=== PATIENT | male | born 1965 | race Caucasian/White ===

== ENCOUNTER 2019-03-26 23:45 | Inpatient (IN) ==
[2019-03-26] MEDS ORDERED: Ipratropium/Albuterol Neb 3 ML IH ONE (23:58)
[2019-03-27] MEDS ORDERED: Naloxone 0.4 MG/ML INJ IVP ONE (00:01)
[2019-03-27] MEDS ORDERED: Naloxone 0.4 MG/ML INJ ONE (00:25)
[2019-03-27] MEDS ORDERED: 0.9 % Sodium Chloride 1,000 ML IVC ONE (00:39)
[2019-03-27 00:42] LABS: Red Cell Distribution Width 12.8 % (11.5-14.5)
[2019-03-27 00:44] LABS: Hematocrit 45.8 % (37.5-50.1); Hemoglobin 15.2 g/dL (12.9-16.9); Mean Corpuscular HGB Conc 33.2 g/dL (31.6-35.5); Mean Corpuscular Hemoglobin 28.6 pg (28.0-33.3); Mean Corpuscular Volume 86.1 fL (83.0-100.0); Mean Platelet Volume 10.2 fL (9.4-12.4); Platelet Count 351 K/mcL (140-400); Red Blood Count 5.32 M/mcL (4.19-5.50); White Blood Count 28.9 K/mcL (4.3-11.1)
[2019-03-27 00:59] LABS: Acetaminophen < 10 mcg/mL (10-20); Alanine Aminotransferase 38 Units/L (7-52); Albumin 4.1 g/dL (3.5-5.7); Albumin/Globulin Ratio 1.1 (1.1-2.2); Alkaline Phosphatase 73 Units/L (34-104); Aspartate Amino Transferase 33 Units/L (13-39); BUN/Creatinine Ratio 7 (6-26); Bilirubin,Indirect 0.3 mg/dL (0.0-1.0); Bilirubin,Total 0.3 mg/dL (0.3-1.0); Blood Urea Nitrogen 9 mg/dL (6-20); Calcium 9.2 mg/dL (8.6-10.3); Carbon Dioxide 28 mEq/L (23-29); Chloride 101 mEq/L (98-107); Creatine Kinase 87 Units/L (30-223); Ethanol < 10 mg/dL (Less than 10); Globulin 3.6 g/dL (2.4-3.5); Glucose 189 mg/dL (70-105); Osmolality,Calculated 286 (280-300); Potassium 3.9 mEq/L (3.5-5.1); Salicylate < 2.5 mg/dL (15.0-30.0); Sodium 136 mEq/L (136-145); Total Protein 7.7 g/dL (6.4-8.9); eGFR For African Americans > 60 (> 60); eGFR For Non-African Americans 60 (> 60)
[2019-03-27 01:08] LABS: Troponin I < 0.03 ng/mL (< 0.04)
[2019-03-27 01:22] LABS: Basophils # 0.3 K/mcL (0.0-0.2); Eosinophils # 1.2 K/mcL (0.0-0.6); Lymphocytes # 4.3 K/mcL (0.6-4.6); Monocytes # 0.9 K/mcL (0.0-1.3); Neutrophils # 22.3 K/mcL (1.6-8.9)
[2019-03-27 01:23] LABS: Platelet Estimate Normal (Normal); Reactive Lymphocytes Present (Not Present)
[2019-03-27] MEDS ORDERED: Isovue-370 500 ML BOTTLE IVP ONE (01:39)
[2019-03-27] MEDS ORDERED: *HR* Heparin 5,000 UNIT/ML VIAL IVP ONE (02:21)
[2019-03-27] MEDS ORDERED: *HR* Heparin 5,000 UNIT/ML VIAL IVP PRN ×2 (02:21)
[2019-03-27] MEDS ORDERED: Piperacillin/Tazobactam 3.375 GM in Water for inj. (sterile) 20 ML IVP ONE (02:29)
[2019-03-27] MEDS ORDERED: Heparin 25,000 UNIT/250 ML D5W 25,000 UNIT/250 ML IV.SOLN IVC SCH ×2 (02:30→13:31)
[2019-03-27 02:52] LABS: Bilirubin,Urine Negative (Negative); Blood,Urine Negative (Negative); Clarity,Urine Clear (Clear); Color,Urine Yellow (Yellow); Glucose,Urine (UA) 250 mg/dL (Normal); Ketones,Urine Negative (Negative); Leukocyte Esterase,Urine Negative (Negative); Nitrite,Urine Negative (Negative); Protein,Urine 100 mg/dL (Neg-Trace); Specific Gravity,Urine 1.024 (1.010-1.025); Urobilinogen,Urine Normal (Normal)
[2019-03-27 02:54] LABS: Bacteria,Urine None Seen per hpf (None-Few); Hyaline Casts,Urine None Seen per lpf (None-Few); RBC,Urine 0-3 per hpf (0-3); Squamous Epithelial Cell,Urine Many per lpf (None-Few); WBC,Urine 0-3 per hpf (0-3)
[2019-03-27 03:06] LABS: Amphetamine Screen,Urine Negative ng/mL (Cutoff=1000); Barbiturate Screen,Urine Negative ng/mL (Cutoff=200); Benzodiazepines Screen,Urine Negative ng/mL (Cutoff=200); Cannabinoid Screen,Urine Negative ng/mL (Cutoff = 50); Cocaine Screen,Urine Negative ng/mL (Cutoff= 300); Opiate Screen,Urine Positive ng/mL (Cutoff=300); Phencyclidine Screen,Urine Negative ng/mL (Cutoff=25)
[2019-03-27 03:52] LABS: Hematocrit 44.5 % (37.5-50.1); Hemoglobin 14.9 g/dL (12.9-16.9); Mean Corpuscular HGB Conc 33.5 g/dL (31.6-35.5); Mean Corpuscular Hemoglobin 28.5 pg (28.0-33.3); Mean Corpuscular Volume 85.2 fL (83.0-100.0); Mean Platelet Volume 10.4 fL (9.4-12.4); Platelet Count 299 K/mcL (140-400); Red Blood Count 5.22 M/mcL (4.19-5.50); Red Cell Distribution Width 12.8 % (11.5-14.5); White Blood Count 19.2 K/mcL (4.3-11.1)
[2019-03-27 04:03] LABS: Prothrombin Time 10.8 Seconds (9.4-12.1)
[2019-03-27] MEDS ORDERED: Azithromycin 500 MG in 0.9 % Sodium Chloride 250 ML IVPB ONE (05:08)
[2019-03-27] MEDS ORDERED: Naloxone 0.4 MG/ML INJ IVP PRN (05:41)
[2019-03-27 08:09] LABS: ABG Base Excess -2 mEq/L (-2 to 3); ABG HCO3 23 mEq/L (21-27); ABG Oxygen Saturation 92 % (95-98); ABG PCO2 39 mmHg (35-45); ABG PH 7.38 pH Units (7.32-7.45); ABG PO2 63 mmHg (85-104); ABG TCO2 24 mEq/L (20-26)
[2019-03-27] MEDS ORDERED: Ipratropium/Albuterol Neb 3 ML IH PRN (08:10)
[2019-03-27] MEDS ORDERED: SUBOXONE PO SCH ×2 (09:00→21:00)
[2019-03-27 11:04] VITALS: BP 103/73
[2019-03-27] MEDS ORDERED: Ampicillin/Sulbactam 3,000 MG in 0.9 % Sodium Chloride Mini Bag 100 ML IVPB SCH (12:00)
[2019-03-27] MEDS ORDERED: *HR* Buprenorphine HCl 2 MG SUBLINGUAL TABLET SL SCH (12:08)
[2019-03-27] MEDS ORDERED: Apixaban 5 MG TABLET PO SCH ×2 (14:54→21:00)
[2019-03-27] MEDS ORDERED: Diltiazem CD (24hr) 240 MG CAPSULE PO SCH (15:00)
[2019-03-27] MEDS ORDERED: Aminoglycoside Consult 1 EACH MC ONE (16:26)
[2019-03-27] MEDS ORDERED: Melatonin 3 MG TABLET PO SCH (21:00)
[2019-03-27] MEDS ORDERED: *HR* Buprenorphine HCl 8 MG TAB.SUBL SL SCH (21:00)
[2019-03-27] MEDS ORDERED: Budesonide/Formoterol 160/4.5 1 PUFF INH IH SCH (22:00)
[2019-03-28] MEDS ORDERED: levoFLOXacin 750 MG/150 ML 750 MG/150 ML BAG IVPB SCH (09:00)
== END 2019-03-27 16:27 | disposition left against medical advice (07) | DRG 816 ==
LOC: EMEROOARM 23:45 → 2NNU 03-27 06:19 → SUATTDRO 03-27 06:19 → 2NNU 03-27 06:30
PROVIDERS: ADMIT Internal Medicine; ATTEND Family Medicine